=== PATIENT | male | born 1950 | race Caucasian/White ===

== ENCOUNTER → 2017-01-27 | Outpatient (CLI) | payer OTHER, MEDICARE | LOC: FIMAGING 12:11 → EDSTATUS 12:12 | PROVIDERS: ATTEND Dermatology | DX: M25.522 Pain in left elbow (principal); Z85.820 Personal history of malignant melanoma of skin ==

== ENCOUNTER 2017-12-15 12:22 | Emergency (ER) | payer OTHER, MEDICARE ==
[2017-12-15 12:37] VITALS: PULSE 100
--- NOTE | 2017-12-15 12:41 | EDPHY ---
H & P Stated Complaint: c/o Lt foot/ankle swelling/pain/redness x 1 wk - bactrum x 2 Time Seen by Provider: 12/15/17 12:33 HPI/ROS: CHIEF COMPLAINT: Diabetic foot infection HISTORY OF PRESENT ILLNESS: The patient is a 67-year-old man with history of diabetes as well as previous episodes of foot cellulitis that required outpatient IV infusions. The patient states that over the last 3 days he has noticed some pain and swelling in his left foot. He also had a mild fungal infection which she started using creams for and he feels they have resolved. Yesterday he presented to the urgent care and was started on Bactrim. He has taken 2 doses thus far. Today he states that he is here for pain control because they do not prescribe him any pain medication. His foot has not become more erythematous. It is slightly swollen but this also has not changed. He denies having neuropathy at baseline. REVIEW OF SYSTEMS: Constitutional: denies: chills, fever, recent illness, recent injury EENTM: denies: blurred vision, double vision, nose congestion Respiratory: denies: cough, shortness of breath Cardiac: denies: chest pain, irregular heart rate, lightheadedness, palpitations Gastrointestinal/Abdominal: denies: abdominal pain, diarrhea, nausea, vomiting, blood streaked stools Genitourinary: denies: dysuria, frequency, hematuria, pain Musculoskeletal: See HPI Skin: See HPI Neurological: denies: headache, numbness, paresthesia, tingling, dizziness, weakness Hematologic/Lymphatic: denies: blood clots, easy bleeding, easy bruising Immunologic/allergic: denies: HIV/AIDS, transplant EXAM: GENERAL: Well-appearing, well-nourished and in no acute distress. HEAD: Atraumatic, normocephalic. EYES: Pupils equal round and reactive to light, extraocular movements intact, sclera anicteric, conjunctiva are normal. ENT: TMs normal, nares patent, oropharynx clear without exudates. Moist mucous membranes. NECK: Normal range of motion, supple without lymphadenopathy or JVD. LUNGS: Breath sounds clear to auscultation bilaterally and equal. No wheezes rales or rhonchi. HEART: Regular rate and rhythm without murmurs, rubs or gallops. ABDOMEN: Soft, nontender, normoactive bowel sounds. No guarding, no rebound. No masses appreciated. BACK: No CVA tenderness, no spinal tenderness, step-offs or deformities EXTREMITIES: Normal range of motion, no pitting or edema. No clubbing or cyanosis. Very minimal swelling to entire left foot dorsally. Only noticeable when compared to the right. NEUROLOGICAL: Cranial nerves II through XII grossly intact. Normal speech, normal gait. 5/5 strength, normal movement in all extremities, normal sensation PSYCH: Normal mood, normal affect. SKIN: No erythema, no warmth. No breaks in the skin. No cracks between the toes. Source: Patient Exam Limitations: No limitations - Personal History Current Tetanus Diphtheria and Acellular Pertussis (TDAP): Yes Tetanus Vaccine Date: 2012 - Medical/Surgical History Hx Asthma: No Hx Chronic Respiratory Disease: No Hx Diabetes: Yes Hx Cardiac Disease: No Hx Renal Disease: No Hx Cirrhosis: No Hx Alcoholism: No Hx HIV/AIDS: No Hx Splenectomy or Spleen Trauma: No Other PMH: PARATHYROIDECTOMY 08-27,htn,cholesterol,sleep apnea - Family History Significant Family History: No pertinent family hx - Social History Smoking Status: Never smoked Alcohol Use: Sober Constitutional: Initial Vital Signs Temperature (C) 37.2 C 12/15/17 12:34 Heart Rate 100 12/15/17 12:34 Respiratory Rate 20 12/15/17 12:34 Blood Pressure 169/84 H 12/15/17 12:34 O2 Sat (%) 95 12/15/17 12:34 O2 Delivery Mode Room Air Allergies/Adverse Reactions: levofloxacin Allergy (Verified 01/26/16 13:07) Home Medications: Medication Instructions Recorded Fish Oil 10/22/14 Metformin 1000 mg 10/22/14 Simvastatin 10/22/14 Vit D3/Vit E AC/Safflower Oil 10/22/14 Aleve 220 MG (OTC) 01/26/16 Aspirin 81mg (OTC) 01/26/16 Claritin 10 mg 01/26/16 Fluticasone Nasal [Flonase Nasal 01/26/16 Climax] Glipizide 10 01/26/16 Lisinopril [Zestril 10 mg (*)] 01/26/16 Amoxicillin/Clavulanate Pot 875 mg PO BID #14 tab 12/15/17 [Augmentin 875Mg] Hydrocodone/APAP 5/325 [[place] 1 - 2 tab PO Q4H PRN #20 tab 12/15/17 5/325 (RX)] Medical Decision Making ED Course/Re-evaluation: The patient appears to have a very early and mild cellulitis was left foot possibly started as a fungal infection. He is currently on Bactrim and antifungal creams which seem to be doing well although it is not yet been long enough to know if the Bactrim will succeed orally. He is here requesting pain medication. I will prescribe him Vicodin and arrange follow-up for him in the ID clinic for re-evaluation and possibly initiation of IV treatment if his symptoms are not improving with oral medication. Patient is happy with this plan and declines further workup or testing at this time. Blood cultures are typically useless in this type of case. 12:55 p.m. I discussed the case with Dr. Preston Guzman who agrees with the follow- up plan but would recommend we switched him from Bactrim to Augmentin. Patient agrees with this plan. They will follow up with him on Tuesday. They will call him. Differential Diagnosis: Partial list of the Differential diagnosis considered include but were not limited to; cellulitis, fungal infection and although unlikely based on the history and physical exam, I also considered gout, trauma, tendonitis, sepsis. I discussed these differential diagnoses and the plan with the patient as well as the usual and expected course. The patient understands that the diagnosis is provisional and that in medicine we are not always correct and that further workup is often warranted. Usual and customary warnings were given. All of the patient's questions were answered. The patient was instructed to return to the emergency department should the symptoms at all worsen or return, otherwise to followup with the physician as we discussed. - Data Points Medications Given: Discontinued Medications Hydrocodone Bitart/Acetaminophen ([place] 5/325mg Prepack#6) 1 btl TAKEHOME EDNOW ONE Stop: 12/15/17 13:00 Last Admin: 12/15/17 13:05 Dose: 1 btl Amoxicillin/Clavulanate Potassium (Augmentin 875mg) 875 mg PO EDNOW ONE PRN Reason: Protocol Stop: 12/15/17 12:56 Last Admin: 12/15/17 13:03 Dose: 875 mg Departure - Departure Disposition: Home, Routine, Self-Care Clinical Impression: Cellulitis Qualifiers: Site of cellulitis: extremity Site of cellulitis of extremity: lower extremity Laterality: left Qualified Code(s): L03.116 - Cellulitis of left lower limb Diabetes Qualifiers: Diabetes mellitus type: type 2 Diabetes mellitus complication status: with unspecified complications Diabetes mellitus nursing home insulin use: unspecified buttermaker insulin use status Qualified Code(s): E11.8 - Type 2 diabetes mellitus with unspecified complications Condition: Fair Instructions: Hydrocodone/Acetaminophen (By mouth), Cellulitis (ED) Referrals: Mikhail Zhu DO [Primary Care Provider] - As per Instructions Preston Guzman MD [Medical Doctor] - 2-3 days, call for appt. (Follow-up on Tuesday. They will call you to schedule an appointment.) Prescriptions: Amoxicillin/Clavulanate Pot [Augmentin 875Mg] 875 mg PO BID #14 tab Hydrocodone/APAP 5/325 [[place] 5/325 (RX)] 1 - 2 tab PO Q4H PRN #20 tab PRN Reason: Pain, Moderate
[2017-12-15] MEDS ORDERED: AMOXICILLIN/CLAVULANATE POT 875/125 MG TAB PO ONE (12:55)
[2017-12-15] MEDS ORDERED: HYDROCOD/APAP 5/325 PREPACK#6 BTL TAKEHOME ONE (12:59)
[2017-12-15 13:41] VITALS: BP 178/92; RESP 18; TEMP 98; O2SAT 96
== END 2017-12-15 13:40 | disposition home or self-care (01) ==
LOC: CED 12:22
DX: L03.116 Cellulitis of left lower limb (principal); E11.9 Type 2 diabetes mellitus without complications; I10 Essential (primary) hypertension; Z79.82 Long term (current) use of aspirin; Z79.84 Long term (current) use of oral hypoglycemic drugs

== ENCOUNTER → 2018-12-18 | Outpatient (CLI) | payer OTHER, MEDICARE | LOC: BHFA 14:30 | PROVIDERS: ATTEND Internal Medicine Cardiovascular Disease | DX: R00.2 Palpitations (principal); R06.09 Other forms of dyspnea ==

== ENCOUNTER → 2018-12-22 | Outpatient (CLI) | payer OTHER, MEDICARE | LOC: FIMAGING 14:11 | PROVIDERS: ATTEND Podiatrist Foot & Ankle Surgery | DX: M79.671 Pain in right foot (principal); M79.672 Pain in left foot; M25.771 Osteophyte, right ankle; M77.32 Calcaneal spur, left foot; M25.772 Osteophyte, left ankle ==

== ENCOUNTER → 2018-12-28 | Outpatient (CLI) | payer OTHER, MEDICARE | LOC: BHFA 13:30 | PROVIDERS: ATTEND Internal Medicine Cardiovascular Disease | DX: I47.1 Supraventricular tachycardia (principal); E11.9 Type 2 diabetes mellitus without complications | CPT/HCPCS: 78452; 93017; A9500; J2785 ==

== ENCOUNTER → 2019-01-02 | Outpatient (CLI) | payer OTHER, MEDICARE | LOC: BHFA 14:00 | PROVIDERS: ATTEND Internal Medicine Cardiovascular Disease | DX: R00.2 Palpitations (principal) ==